=== PATIENT | female | born 1975 | race Caucasian/White ===

== ENCOUNTER 2021-05-23 21:00 | Emergency (ER) | payer MEDICARE, OTHER ==
[~2021-05-23] VITALS: Ht 165.1 cm; Wt 123.4 kg
[2021-05-23] MEDS ORDERED: ALBUTEROL SULF 2.5 MG/0.5ML(0.5%) NEB SOLN HHN ONE (22:45)
[2021-05-23] MEDS ORDERED: IPRATROPIUM BROM 0.5 MG/2.5ML INH SOL HHN ONE (22:45)
[2021-05-23] MEDS ORDERED: PROMETHAZINE W/CODEINE 5 ML ORAL SYRUP PO ONE (22:45)
[2021-05-24] MEDS ORDERED: PROMETHAZINE W/CODEINE 5 ML ORAL SYRUP PO ONE (04:30)
[2021-05-24] MEDS ORDERED: traMADol HCL 50 MG TAB PO PRN (14:30)
[2021-05-24] MEDS ORDERED: ZIPRASIDONE PO SCH (17:30)
[2021-05-24] MEDS ORDERED: PRAZOSIN HCL 1 MG CAP PO SCH (18:00)
[2021-05-24 20:30] VITALS: BP 105/61
[2021-05-24] MEDS ORDERED: TOPIRAMATE 100 MG TAB PO SCH (22:00)
[2021-05-24] MEDS ORDERED: hydrOXYchloroQUINE SULFATE 200 MG TAB PO SCH (22:00)
[2021-05-24] MEDS ORDERED: DICYCLOMINE HCL 10 MG CAP PO SCH (22:00)
[2021-05-24] MEDS ORDERED: buPROPion HCL 75 MG TAB PO SCH (22:00)
[2021-05-24] MEDS ORDERED: lamoTRIgine 100 MG TAB PO SCH (22:00)
[2021-05-25] MEDS ORDERED: LEVOTHYROXINE SODIUM 25 MCG TAB PO SCH (07:00)
[2021-05-25] MEDS ORDERED: LEVOTHYROXINE SODIUM 112 MCG TAB PO SCH (07:00)
[2021-05-25] MEDS ORDERED: ZIPRASIDONE 40 MG PO SCH (08:00)
[2021-05-25] MEDS ORDERED: CYANOCOBALAMIN 500 MCG TAB PO SCH (10:00)
[2021-05-25] MEDS ORDERED: PATIENTS OWN MEDICATION PO PRN (10:00)
== END 2021-05-24 19:19 | disposition short-term general hospital (02) ==
LOC: ER 21:00
DX: J40 Bronchitis, not specified as acute or chronic (principal); Z20.822 Contact with and (suspected) exposure to COVID-19
CPT/HCPCS: 36415; 71045; 87426; 94640; 99285; J7644